=== PATIENT | male | born 1980 | race African-American/Black ===

== ENCOUNTER 2017-03-08 15:12 | Inpatient (IN) | payer OTHER ==
--- NOTE | ~2017-03-08 | PN ---
Unit #: [id number] #: [id number] Patient: TINY COTRTELL [id number] [facility] [address] [place] [address] [id number] I MR#: [id number] NAME: TINY COTTRELL. ROOM: P252 Age: 36 Sex: M Admission Date: 03/08/2017 : 1980 Attending Physician: Ratna Gallardo M.D. Admitting Physician: Ratna Gallardo M.D. Primary Care Physician: Generic Doctor Not In System [facility] PROGRESS NOTES DATE 03/11/2017 DISCUSSION Mr. Cottrell is a 36-year-old, male who was seen today and chart was reviewed and case was discussed with the staff. He has been doing fairly well and appears to be showing some improvement in his depressive symptoms as he has been able to come out of his room and socialize and interact. Meanwhile, he has been taking the medication and tolerating them fairly well. MENTAL STATUS EXAM Young male who was casually dressed with fair personal hygiene, appears to be in no acute distress or discomfort. He was awake and alert on interaction with intact orientation. His mood was anxious with congruent affect. He denies any suicidal or homicidal ideation. His insight and judgement remains slightly impaired. TREATMENT PLAN 1. We will continue him on his current medications and treatment protocol. We will monitor his response to the medication and make further adjustments as needed. 2. We will continue to follow up. Dictated by... Jamilah Garcia/cindy TD: 03/13/2017 01:09 JOB #: [id number] Unit #: [id number] #: [id number] Patient: TINY COTTRELL [facility] PROGRESS NOTES Page 1 of 1 X Ratna Gallardo MD PROGRESS NOTE
--- NOTE | ~2017-03-08 | DS ---
Unit #: [id number] #: [id number] Patient: TINY COTTRELL [id number] [facility] [address] [place] [address] [id number] I MR#: [id number] NAME: TINY COTTRELL. ROOM: P252 Age: 36 Sex: M Admission Date: 03/08/2017 : 1980 Discharge Date: 03/14/2017 Attending Physician: Ratna Gallardo M.D. Primary Care Physician: Generic Doctor Not In System DISCHARGE SUMMARY IDENTIFYING DATA Mr. Cottrell is a 36-year-old male, who is a resident of [place], [place] and was self-referred to the hospital on a voluntary basis. DISCHARGE DIAGNOSES Psychiatric: Major depressive disorder, recurrent, moderate, without psychotic features. Medical: Hypertension, diabetes mellitus, human immunodeficiency virus. Stressors: Moderate psychosocial stressors. HISTORY OF PRESENT ILLNESS Please see initial psychiatric evaluation for details. PAST PSYCHIATRIC HISTORY Please see initial psychiatric evaluation for details. PAST MEDICAL HISTORY Please see initial psychiatric evaluation for details. HOSPITAL COURSE The patient [facility] and was oriented to the hospital environment. Routine p.r.n. medications were initiated and started back on his home medications. Medications were adjusted and he was closely monitored. He was taking medications regularly and was tolerating them fairly well and was able to show a decent therapeutic response with improvement in depression and anxiety and was willing to continue treatment on an outpatient basis and as such, it was decided that he will be discharged home and will continue treatment on an outpatient basis. DISCHARGE MEDICATIONS Effexor XR 75 mg b.i.d. for depression, Norvasc 10 mg a day for hypertension, Lioresal 10 mg q.i.d. for pain, Tivicay 50 mg a day for HIV, Descovy one a day for HIV. DISCHARGE CONDITION Stable. PROGNOSIS Fair. Dictated by... Unit #: [id number] #: [id number] Patient: TINY COTTRELL Jamilah Garcia/kaitlin TD: 03/14/2017 08:06 JOB #: [id number] DISCHARGE SUMMARY Page 1 of 1 X Ratna Gallardo MD DISCHARGE SUMMARY
--- NOTE | ~2017-03-08 | HP ---
Unit #: [id number] #: [id number] Patient: TINY COTTRELL [id number] [place] [address] [id number] I MR#: [id number] NAME: TINY COTTRELL. ROOM: 62 Age: 36 Sex: M Admission Date: 03/08/2017 : 1980 Attending Physician: Ratna Gallardo M.D. Admitting Physician: Ratna Gallardo M.D. Primary Care Physician: Generic Doctor Not In System HISTORY AND PHYSICAL HISTORY OF PRESENT ILLNESS Tiny is a 36 year old man admitted to [address] [place] [address] with depression and verbalizing wanting to hurt himself. PAST MEDICAL HISTORY 1. Positive HIV, diagnosed 2016. 2. Diabetes mellitus. 3. High blood pressure. PAST SURGICAL HISTORY 1. Low back. 2. Cervical disc. ALLERGIES No known drug allergies. SOCIAL HISTORY He smokes less than 1 pack per day. Drinks alcohol 3 to 4 times a week and denies illicit drug use. FAMILY HISTORY Medically noncontributory. REVIEW OF SYSTEMS CONSTITUTIONAL: No fever or chills. HEENT: Denies any sore throat, ear pain or runny nose. CARDIOVASCULAR: Denies chest pain, irregular heart rhythm or palpitations. CHEST: Denies shortness of breath or cough. No hemoptysis. GASTROINTESTINAL: Denies nausea, vomiting, diarrhea or chronic constipation. ENDOCRINE: Denies history of increased thirst or urination. No recent significant weight loss or gain. GENITOURINARY: Denies dysuria, frequency, or hematuria. SKIN: Denies any rashes. HEMATOLOGIC: Denies history of increased bleeding or bruising. MUSCULOSKELETAL: Denies any hot, swollen joints. No generalized muscle pain. NEUROLOGIC: Denies problems with vision or speech. No frequent, severe headaches. No numbness, tingling or weakness in any extremities. Denies loss of bladder or bowel control. CURRENT MEDICATIONS 1. Norvasc 10 mg daily. Unit #: [id number] #: [id number] Patient: TINY COTTRELL 2. Levemir 30 units q.h.s. 3. Lioresal 10 mg b.i.d. 4. Effexor 37.5 mg b.i.d. 5. Desyrel 50 mg q.h.s. p.r.n. 6. Milk of Magnesia p.r.n. 7. Maalox p.r.n. 8. Tylenol p.r.n. 9. [place] 10/325 one tab t.i.d. p.r.n. 10. Nicotine patch 14 mg daily. 11. Descovy 200/25 one tablet daily. 12. Tivicay 50 mg daily. 13. Celexa 20 mg daily. PHYSICAL EXAMINATION GENERAL: Alert, well-nourished, in no apparent distress. VITAL SIGNS: Blood pressure 160/86, heart rate 94, respirations 16, temperature 98.6. WEIGHT: 360. HEIGHT: 6 feet 6 inches. SKIN: Warm and dry without rash or lesion. HEENT: Normocephalic. TMs not viewed. Oral and nasal passages clear. Conjunctivae clear. PERRLA. EOMs intact. NECK: Supple without lymphadenopathy or thyromegaly. HEART: Regular rate and rhythm without murmur. LUNGS: Clear. ABDOMEN: Soft, nontender. : Not done. EXTREMITIES: No evidence of cyanosis, clubbing or edema. Moves all without focal deficit. NEUROLOGICAL: Grossly within normal limits. Cranial Nerves: II: Visual araiza are intact. III, IV AND : Extraocular movements are intact. Pupils are equal, round and reactive to light. V: Facial sensation is grossly normal. VII: Facial movements and expression are normal. VIII: Auditory acuity grossly intact. IX, X: Uvula is midline. Phonation is normal. XI: Patient shrugs shoulders and turns head normally. XII: Tongue protrudes in the midline. Sensory and Motor Function: Sensory and motor sensation is grossly normal. Motor: moves all extremities well. Coordination: Gait is normal. Deep Tendon Reflexes: Intact. IMPRESSION Psychiatric admission. RECOMMENDATIONS PSYCHIATRIC: Per psychiatrist. MEDICAL: See no contraindications to participate in facility's activities. MEDICAL PROGNOSIS Good. MEDICAL CONDITION Stable. Dictated by... Unit #: [id number] #: [id number] Patient: TINY COTTRELL Izabella Molina P.A.-C. for Jamilah Flores/ricky TD: 03/08/2017 21:19 JOB #: [id number] HISTORY AND PHYSICAL Page 1 of 1 X Izabella Molina HISTORY AND PHYSICAL
--- NOTE | ~2017-03-08 | PN ---
Unit #: [id number] #: [id number] Patient: TINY COTTRELL [id number] [facility] [address] [place] [address] [id number] I MR#: [id number] NAME: TINY COTTRELL. ROOM: [facility] Age: 36 Sex: M Admission Date: 03/08/2017 : 1980 Attending Physician: Ratna Gallardo M.D. Admitting Physician: Ratna Gallardo M.D. Primary Care Physician: Generic Doctor Not In System [facility] PROGRESS NOTES DATE March 09, 2017 DISCUSSION Mr. Cotrtell is a 36-year-old male, who was seen today and chart was reviewed and the case was discussed with the staff. He has been anxious, withdrawn, and has been rather seclusive to himself. Meanwhile, he has been cooperative with his treatment recommendations and he has been taking the medications and tolerating them fairly well with no reported side effects. MENTAL STATUS EXAMINATION Young male, who was casually dressed with fair personal hygiene and appears to be in no acute distress or discomfort. He was awake and alert on interaction with intact orientation. His mood is anxious and depressed with a congruent affect. He reports having suicidal ideations, but denies any homicidal ideations. His insight and judgment remain slightly impaired. TREATMENT PLAN 1. We will continue him on his current medications and treatment protocol, and will monitor his response to the medications, and make further adjustments as needed. 2. We will continue to followup. Dictated by... Jamilah Garcia/fareed TD: 03/10/2017 05:12 JOB #: [id number] Unit #: [id number] #: [id number] Patient: TINY COTTRELL [facility] PROGRESS NOT[facility] Page 1 of 1 X Ratna Gallardo MD X PROGRESS NOTE
--- NOTE | ~2017-03-08 | PN ---
Unit #: [id number] #: [id number] Patient: TINY COTTRELL [id number] [facility] [address] [place] [address] [id number] MR#: [id number] NAME: TINY COTTRELL. ROOM: P252 Age: 36 Sex: M Admission Date: 03/08/2017 : 1980 Attending Physician: Ratna Gallardo M.D. Admitting Physician: Ratna Gallardo M.D. Primary Care Physician: Dunia Doctor Not In System [facility] PROGRESS NOTES DATE March 13, 2017 DISCUSSION Mr. Cottrell is a 36-year-old male, who was seen today and chart was reviewed and the case was discussed with the staff. He has been anxious, withdrawn, and rather seclusive to himself. Meanwhile, he has been cooperative with the treatment recommendations and he has been taking the medications and tolerating them fairly well with no reported side effects. MENTAL STATUS EXAMINATION Young male, who was casually dressed with fair personal hygiene and appears to be in no acute distress or discomfort. He was awake and alert with impaired attention and concentration. His mood is anxious with a congruent affect. He denies any suicidal or homicidal ideations, and also denies any auditory or visual hallucinations. His insight and judgment remain slightly impaired. TREATMENT PLAN 1. We will continue him on his current medications and treatment protocol, and will monitor his response to the medications, and make further adjustments as needed. 2. We will continue to followup. Dictated by... Jamilah Garcia/fareed TD: 03/13/2017 12:44 JOB #: [id number] Unit #: [id number] #: [id number] Patient: TINY COTTRELL [facility] PROGRESS NOT[facility] Page 1 of 1 X Ratna Gallardo MD PROGRESS NOTE
--- NOTE | ~2017-03-08 | PN ---
Unit #: [id number] #: [id number] Patient: TINY COTTRELL [id number] [facility] [address] [place] [address] [id number] MR#: [id number] NAME: TINY COTTRELL. ROOM: [facility] Age: 36 Sex: M Admission Date: 03/08/2017 : 1980 Attending Physician: Ratna Gallardo M.D. Admitting Physician: Ratna Gallardo M.D. Primary Care Physician: Generic Doctor Not In System [facility] PROGRESS NOTES DATE OF SERVICE: 03/10/2017 SUBJECTIVE Mr. Cottrell is a 36-year-old male who was seen today and chart was reviewed and case was discussed with the staff. He has been anxious, withdrawn, depressed, and rather seclusive to himself. Meanwhile, he has been compliant with treatment recommendations as he has been taking the medications and tolerating them fairly well with no reported side effects. MENTAL STATUS EXAMINATION Young male who was casually dressed with fair personal hygiene, appears to be in no acute distress or discomfort. He was awake and alert on interaction with intact orientation. His mood was anxious and depressed with a congruent affect. His speech was slow and goal directed. He denies any suicidal or homicidal ideations. His insight and judgment remain slightly impaired. TREATMENT PLAN 1. We will continue him on his current medications and treatment protocol. We will monitor his response to the medications and make further adjustments as needed. 2. We will continue to follow up. Dictated by... Jamilah Garcia/kaitlin TD: 03/10/2017 10:19 JOB #: [id number] Unit #: [id number] #: [id number] Patient: TINY COTTRELL [facility] PROGRESS NOT[facility] Page 1 of 1 X Ratna Gallardo MD PROGRESS NOTE
--- NOTE | ~2017-03-08 | PN ---
Unit #: [id number] #: [id number] Patient: TINY COTTRELL [id number] [facility] [address] [place] [address] [id number] MR#: [id number] NAME: TINY COTTRELL. ROOM: P252 Age: 36 Sex: M Admission Date: 03/08/2017 : 1980 Attending Physician: Ratna Gallardo M.D. Admitting Physician: Ratna Gallardo M.D. Primary Care Physician: Generic Doctor Not In System [facility] PROGRESS NOTES DATE OF SERVICE: 03/12/2017 SUBJECTIVE Mr. Parsons is a 36-year-old male who was seen today and chart was reviewed, and case was discussed with the staff. He has been anxious, withdrawn, though has not shown any agitation, irritability, or behavioral problems, and has been cooperative with treatment recommendations as has been taking the medications and tolerating them fairly well with no reported side effects. MENTAL STATUS EXAMINATION Young male who was casually dressed with fair personal hygiene, appears to be in no acute distress or discomfort. He was awake and alert with intact orientation. His mood was anxious with a congruent affect. He denies any suicidal or homicidal ideations. His insight and judgment remain slightly impaired. TREATMENT PLAN We will continue him on his current medications and treatment protocol. We will monitor his response and make further adjustments as needed. Dictated by... Jamilah Garcia/meghanl TD: 03/12/2017 12:35 JOB #: [id number] [facility] PROGRESS NOTES Page 1 of 1 X Ratna Gallardo MD PROGRESS NOTE
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
[2017-03-09 09:50] LABS: BASOPHIL% 0.6 % (0-2.5); EOSINOPHIL# 0.1 X10e3 (0-0.7); EOSINOPHIL% 1.5 % (0.0-7.0); HEMATOCRIT 40.4 % (38.0-50.0); HEMOGLOBIN 13.1 gm/dL (13.0-16.0); LYMPHOCYTE% 36.8 % (17.0-45.0); MEAN CORPUSCULAR HEMOGLOBIN 26.8 PG (28-34); MEAN CORPUSCULAR HGB CONC 32.3 g/dL (30-36); MEAN PLATELET VOLUME 8.6 FL (6.5-11.5); MONOCYTE# 0.9 X10e3 (0-1.0); MONOCYTE% 11.1 % (3.0-12.0); NEUTROPHIL# 4.1 X10e3 (1.5-7.1); PLATELET COUNT 305 X10e3 (140-420); RED BLOOD COUNT 4.87 X10e (3.90-5.60); RED CELL DISTRIBUTION WIDTH 16.2 % (11.0-15.5); WHITE BLOOD COUNT 8.3 X10e3 (4.0-10.5)
[2017-03-09 09:55] LABS: DIFF IND NO
[2017-03-09 10:55] LABS: ALBUMIN SERUM 3.1 g/dL (3.5-5.0); BILIRUBIN,TOTAL 0.3 mg/dL (0.2-2.0); BUN/CREATININE RATIO 15.71; CALCIUM SERUM 9.4 mg/dL (8.4-10.2); CREATININE SERUM 0.7 mg/dL (0.6-1.4); GLOM FILT RATE Estimated 138.8 mL/min (>60); POTASSIUM 4.2 mmol/L (3.5-5.1); PROTEIN TOTAL SERUM 7.3 g/dL (6.0-8.3)
[2017-03-11 13:19] LABS: URINE APPEARANCE CLEAR; URINE BILIRUBIN NEG (NEG); URINE BLOOD NEG (NEG); URINE COLOR YELLOW; URINE GLUCOSE NEG (NEG); URINE KETONE NEG (NEG); URINE LEUKOCYTE ESTERASE TRACE (NEG); URINE NITRATE NEG (NEG); URINE PH 6.5 (5-8); URINE PROTEIN NEG (NEG); URINE SPECIFIC GRAVITY 1.017 (1.003-1.035); URINE UROBILINOGEN 0.2 MG/DL (NEG)
[2017-03-11 13:22] LABS: URBCS1 AUWI 0-2 /[HPF] (0-2); URINE BACTERIA AUWI NEG (NEGATIVE); URINE SQUAMOUS EPITHELIAL CELL FEW /[HPF]
[2017-03-11 13:33] LABS: AMPHETAMINE NEG (NEG); BARBITURATES NEG (NEG); BENZODIAZEPINES NEG (NEG); COCAINE NEG (NEG); MARIJUANA NEG (NEG); OPIATES POS (NEG); TRICYCLIC ANTIDEPRESSANTS NEG (NEG); U METHADONE NEG (NEG)
== END 2017-03-14 12:00 | disposition home or self-care (01) | DRG 885 ==
LOC: P2L 15:12
PROVIDERS: Psychiatry & Neurology Psychiatry
DX: F33.1 Major depressive disorder, recurrent, moderate (principal); B20 Human immunodeficiency virus [HIV] disease; R45.851 Suicidal ideations; I10 Essential (primary) hypertension; E11.9 Type 2 diabetes mellitus without complications; F17.210 Nicotine dependence, cigarettes, uncomplicated
CPT/HCPCS: 80053; 80307; 81003; 82947; 85025